=== PATIENT | female | born 1975 | race Hispanic/Latino ===

== ENCOUNTER 2021-04-19 18:39 | Emergency (ER) | payer OTHER ==
[~2021-04-19] VITALS: Ht 162.6 cm; Wt 68.0 kg
[2021-04-19] MEDS ORDERED: AMOX/CLAV 875/125MG TAB PO ONE (19:00)
[2021-04-19] MEDS ORDERED: ACETAMINOPHEN WITH CODEINE 1 TAB TAB PO ONE (19:00)
[2021-04-19] MEDS ORDERED: TETANUS/DIPHTHERIA TOXOID [ADULT] 0.5 ML VIAL IM ONE (19:00)
[2021-04-19] MEDS ORDERED: AMOX-429 PO (19:56)
[2021-04-19 20:14] VITALS: BP 103/71
== END 2021-04-19 20:18 | disposition home or self-care (01) ==
LOC: EDH 18:39
DX: S71.132A Puncture wound without foreign body, left thigh, initial encounter (principal); S51.832A Puncture wound without foreign body of left forearm, initial encounter; S41.132A Puncture wound without foreign body of left upper arm, initial encounter; Z90.710 Acquired absence of both cervix and uterus; W54.0XXA Bitten by dog, initial encounter; Y93.89 Activity, other specified; Y92.89 Other specified places as the place of occurrence of the external cause; Y99.8 Other external cause status
CPT/HCPCS: 73090; 73551; 90471; 90714

== ENCOUNTER 2023-02-26 21:52 | Emergency (ER) | payer OTHER ==
[~2023-02-26] VITALS: Ht 162.6 cm; Wt 75.7 kg
[~2023-02-26 21:52] MED LIST: AMOX-429 PO
[2023-02-26] MEDS ORDERED: TETANUS/DIPHTHERIA TOXOID [ADULT] 0.5 ML VIAL IM ONE ×2 (22:41→23:00)
[2023-02-26 22:51] VITALS: BP 117/87; PULSE 75; RESP 18; O2SAT 98
[2023-02-26] MEDS ORDERED: LIDOCAINE HCL 1% 20 ML VIAL INJ SCH (23:30)
[2023-02-27] MEDS ORDERED: IBUP-1493 PO (00:42)
[2023-02-27] MEDS ORDERED: AMOX1TAB16 PO (00:42)
== END 2023-02-27 01:59 | disposition home or self-care (01) ==
LOC: EDH 21:52
DX: S81.812A Laceration without foreign body, left lower leg, initial encounter (principal); Z90.49 Acquired absence of other specified parts of digestive tract; Z90.710 Acquired absence of both cervix and uterus; Z98.890 Other specified postprocedural states; W54.0XXA Bitten by dog, initial encounter; Y93.89 Activity, other specified; Y92.89 Other specified places as the place of occurrence of the external cause; Y99.8 Other external cause status
CPT/HCPCS: 12004; 73590; 90471; 90714